=== PATIENT | male | born 1990 | race Caucasian/White ===

== ENCOUNTER 2018-06-19 17:39 | Emergency (ER) | payer BC, OTHER ==
[2018-06-19] MEDS ORDERED: Ketorolac 60 MG/2 ML SDV IM ONE (18:34)
--- NOTE | 2018-06-19 18:34 | EDM.PDOC ---
ED HPI GENERAL MEDICAL PROBLEM - General Chief Complaint: General Stated Complaint: FLU LIKE SYMPTOMS Time Seen by Provider: 06/19/18 18:27 Source of Information: Reports: Patient History Limitations: Reports: No Limitations - History of Present Illness INITIAL COMMENTS - FREE TEXT/NARRATIVE: History of present illness: []Patient presents with congestion, sore throat, fevers, chills and body aches. He has no vomiting, diarrhea, abdominal pain or shortness of breath. Patient is insulin-dependent diabetic sugar today. Review of systems: As per history of present illness and below otherwise all systems reviewed and negative. Past medical history: As per history of present illness and as reviewed below otherwise noncontributory. Surgical history: As per history of present illness and as reviewed below otherwise noncontributory. Social history: No reported history of drug or alcohol abuse. Family history: As per history of present illness and as reviewed below otherwise noncontributory. Physical exam: General: Well developed, well nourished in NAD HEENT: Atraumatic, normocephalic, pupils reactive, negative for conjunctival pallor or scleral icterus, mucous membranes moist, throat clear, no erythema, no exudate neck supple, nontender, trachea midline. TMs clear, no sinus tenderness to palpation Lungs: Clear to auscultation, breath sounds equal bilaterally, chest nontender. No wheezing or rhonchi Heart: S1S2, regular, negative for clicks, rubs, or JVD. Abdomen: NABS, Soft, nondistended, nontender. Negative for masses or hepatosplenomegaly. Negative for costovertebral tenderness. Pelvis: Stable nontender. Genitourinary: Deferred. Rectal: Deferred. Extremities: Atraumatic, negative for cords or calf pain. Neurovascular unremarkable. Neuro: Awake, alert, oriented. Cranial nerves II through XII unremarkable. Cerebellum unremarkable. Motor and sensory unremarkable throughout. Exam nonfocal. Skin:warm and dry Diagnostics: Bedside glucose 261, rapid strep, influenza, vital signs stable and afebrile Therapeutics: Toradol ED Course: Patient stable Impression: Viral URI Prescriptions: None Plan: Follow-up with primary care return if symptoms worsen or change. Definitive disposition and diagnosis as appropriate pending reevaluation and review of above. throat Pain Score (Numeric/FACES): 6 - Related Data Allergies Allergy/AdvReac Type Severity Reaction Status Date / Time ampicillin Allergy Other Verified 12/10/15 06:33 diphenhydramine Allergy Other Verified 12/10/15 06:33 [From Benadryl] Penicillins Allergy Other Verified 12/10/15 06:33 Sulfa (Sulfonamide Allergy Other Verified 12/10/15 06:33 Antibiotics) Home Meds: Home Meds Insulin Aspart [NovoLOG] 100 unit SUBCUT ACBRKBED 12/10/15 [History] Insulin Glarg,Human.Rec.Analog [LantUS Solostar] 52 units SQ DAILY 12/10/15 [ History] Past Medical History HEENT History: Reports: None Cardiovascular History: Reports: None Respiratory History: Reports: None Gastrointestinal History: Reports: None Genitourinary History: Reports: None Musculoskeletal History: Reports: None Neurological History: Reports: None Psychiatric History: Reports: None Endocrine/Metabolic History: Reports: Diabetes, Type I Hematologic History: Reports: None Immunologic History: Reports: None Oncologic (Cancer) History: Reports: None Dermatologic History: Reports: None - Infectious Disease History Infectious Disease History: Reports: Chicken Pox, Mononucleosis - Past Surgical History HEENT Surgical History: Reports: None Cardiovascular Surgical History: Reports: None Social & Family History - Family History Family Medical History: Noncontributory - Tobacco Use Smoking Status *Q: Current Every Day Smoker Years of Tobacco use: 20 Packs/Tins Daily: 0.3 - Recreational Drug Use Recreational Drug Use: No ED ROS GENERAL - Review of Systems Review Of Systems: ROS reveals no pertinent complaints other than HPI. ED EXAM, GENERAL - Physical Exam Exam: See Below (See history of present illness) Course - Vital Signs Last Recorded V/S: Last Vital Signs Temp 98.9 F 06/19/18 18:23 Pulse 86 06/19/18 18:23 Resp 20 06/19/18 18:23 BP 142/78 H 06/19/18 18:23 Pulse Ox 97 06/19/18 18:23 - Orders/Labs/Meds Orders: Active Orders 24 hr Category Date Time Status Blood Glucose Check, Bedside [RC] ONETIME Care 06/19/18 19:05 Active CULTURE STREP A CONFIRMATION [RM] Stat Lab 06/19/18 19:05 Results STREP SCRN A RAPID W CULT CONF [RM] Stat Lab 06/19/18 19:05 Results Meds: Medications Discontinued Medications Generic Name Dose Route Start Last Admin Trade Name Lisbet PRN Reason Stop Dose Admin Insulin Human Regular 8 unit 06/19/18 19:14 06/19/18 19:37 Novolin R SUBCUT 06/19/18 19:15 Not Given ONETIME ONE Protocol Ketorolac Tromethamine 60 mg 06/19/18 18:34 06/19/18 19:04 Toradol IM 06/19/18 18:35 60 mg ONETIME ONE Administration Departure - Departure Time of Disposition: 19:46 Disposition: Home, Self-Care 01 Condition: Good Clinical Impression: Viral URI - Discharge Information *PRESCRIPTION DRUG MONITORING PROGRAM REVIEWED*: No *COPY OF PRESCRIPTION DRUG MONITORING REPORT IN PATIENT BRANDEN: No Referrals: Jacky Recio MD [Primary Care Provider] - Forms: ED Department Discharge Additional Instructions: The following information is given to patients seen in the emergency department who are being discharged to home. This information is to outline your options for follow-up care. We provide all patients seen in our emergency department with a follow-up referral. The need for follow-up, as well as the timing and circumstances, are variable depending upon the specifics of your emergency department visit. If you don't have a primary care physician on staff, we will provide you with a referral. We always advise you to contact your personal physician following an emergency department visit to inform them of the circumstance of the visit and for follow-up with them and/or the need for any referrals to a consulting specialist. The emergency department will also refer you to a specialist when appropriate. This referral assures that you have the opportunity for follow-up care with a specialist. All of these measure are taken in an effort to provide you with optimal care, which includes your follow-up. Under all circumstances we always encourage you to contact your private physician who remains a resource for coordinating your care. When calling for follow-up care, please make the office aware that this follow-up is from your recent emergency room visit. If for any reason you are refused follow-up, please contact the [facility] at and asked to speak to the emergency department charge nurse. [facility] [address] [place] [phone] - My Orders Last 24 Hours: My Active Orders 06/19/18 19:05 Blood Glucose Check, Bedside [RC] ONETIME CULTURE STREP A CONFIRMATION [RM] Stat STREP SCRN A RAPID W CULT CONF [] Stat - Assessment/Plan Last 24 Hours: My Active Orders 06/19/18 19:05 Blood Glucose Check, Bedside [RC] ONETIME CULTURE STREP A CONFIRMATION [RM] Stat STREP SCRN A RAPID W CULT CONF [] Stat
[2018-06-19] MEDS ORDERED: Insulin Regular, Human 100 Units/ML 10 ML Vial SUBCUT ONE (19:14)
[2018-06-19 20:12] VITALS: BP 123/70
== END 2018-06-19 19:50 | disposition home or self-care (01) ==
LOC: MW.ED 17:39
DX: J06.9 Acute upper respiratory infection, unspecified (principal); E10.9 Type 1 diabetes mellitus without complications; F17.210 Nicotine dependence, cigarettes, uncomplicated; Z88.1 Allergy status to other antibiotic agents; Z88.0 Allergy status to penicillin; Z88.8 Allergy status to other drugs, medicaments and biological substances; Z88.2 Allergy status to sulfonamides
CPT/HCPCS: 87081; 87804; 87880; 96372; 99283; J1885; J1815-GY

== ENCOUNTER 2022-05-20 06:31 | Day surgery (SDC) | payer BC ==
[~2022-05-20 06:31] MED LIST: Lactated Ringers 1,000 ML IV SCH
[2022-05-20] MEDS ORDERED: Bupivacaine 0.5% 30 ML SDV ONE (07:27)
[2022-05-20] MEDS ORDERED: Lidocaine 2% 11 ML Jelly Filled Syringe ONE (07:44)
[2022-05-20] MEDS ORDERED: Ketorolac 30 MG/ML SDV ONE (07:44)
[2022-05-20] MEDS ORDERED: Lidocaine 2% 5 ML SDV ONE (07:44)
[2022-05-20] MEDS ORDERED: Propofol 200 MG/20 ML SDV ONE (07:44)
[2022-05-20] MEDS ORDERED: Ondansetron 4 MG/2 ML SDV ONE (07:44)
[2022-05-20] MEDS ORDERED: fentaNYL 100 MCG/2 ML SDV ONE (07:45)
[2022-05-20] MEDS ORDERED: fentaNYL 50 MCG/ML SDV IVPUSH PRN (07:57)
[2022-05-20] MEDS ORDERED: Morphine 2 MG/ML SYRINGE IVPUSH PRN (07:57)
[2022-05-20] MEDS ORDERED: Albuterol 0.083% 2.5 MG/3 ML Neb Soln NEB PRN (07:57)
[2022-05-20] MEDS ORDERED: HYDROmorphone 1 MG/ML Syringe IVPUSH PRN (07:57)
[2022-05-20] MEDS ORDERED: Naloxone 0.4 MG/ML SDV IVPUSH PRN (07:57)
[2022-05-20] MEDS ORDERED: Ondansetron 4 MG/2 ML SDV IVPUSH PRN (07:57)
[2022-05-20] MEDS ORDERED: Metoclopramide 10 MG/2 ML SDV IVPUSH PRN (07:57)
[2022-05-20] MEDS ORDERED: Acetaminophen/HYDROcodone 325-5 MG Tab PO PRN (09:14)
[2022-05-20] MEDS ORDERED: Lactated Ringers 1,000 ML IV SCH (09:15)
[2022-05-20 12:42] VITALS: BP 129/73; PULSE 79
== END 2022-05-20 09:30 | disposition home or self-care (01) ==
LOC: MW.SDS 06:31
PROVIDERS: ATTEND Surgery
DX: D17.24 Benign lipomatous neoplasm of skin and subcutaneous tissue of left leg (principal); E10.9 Type 1 diabetes mellitus without complications; E78.00 Pure hypercholesterolemia, unspecified; E66.9 Obesity, unspecified; F41.9 Anxiety disorder, unspecified; F17.290 Nicotine dependence, other tobacco product, uncomplicated; Z68.33 Body mass index [BMI] 33.0-33.9, adult; Z88.2 Allergy status to sulfonamides; Z88.0 Allergy status to penicillin; Z79.899 Other long term (current) drug therapy; Z98.890 Other specified postprocedural states; Z79.4 Long term (current) use of insulin
CPT/HCPCS: 11606; A9270; J1885; J2704; J3010; J3490; J7120; 00400; J2405